=== PATIENT | female | born 1970 | race Caucasian/White ===

== ENCOUNTER → 2018-12-12 | Outpatient (CLI) | payer OTHER ==
[~2018-12-12] MED LIST: ALBU90OI INH; ALBU90OI6 INH; HYDACE5 PO; PENVK500 PO
== END | disposition home or self-care (01) ==
LOC: LAB SHORT 09:36 → PLD 09:36
DX: N60.01 Solitary cyst of right breast (principal); N60.19 Diffuse cystic mastopathy of unspecified breast; N60.49 Mammary duct ectasia of unspecified breast
CPT/HCPCS: 88305; 88312

== ENCOUNTER → 2024-10-22 | Outpatient (CLI) | payer OTHER ==
[2024-10-28 12:06] LABS: HPV HIGH RISK BY TMA Not Detected; HPV SOURCE Cervical
== END | disposition home or self-care (01) ==
LOC: LAB SHORT 13:11 → LAB 13:11
PROVIDERS: Family Medicine
DX: Z01.419 Encounter for gynecological examination (general) (routine) without abnormal findings (principal)
CPT/HCPCS: 87624; G0123